=== PATIENT | male | born 1985 | race American Indian/Alaskan Native ===

== ENCOUNTER 2019-01-13 02:38 | Emergency (ER) | payer OTHER ==
[2019-01-13 02:59] VITALS: BP 168/96
[2019-01-13] MEDS ORDERED: ULTRAM PO ONE (05:53)
[2019-01-13] MEDS ORDERED: BOOSTRIX IM ONE (05:53)
--- NOTE | 2019-01-13 05:53 | Emergency Department Report ---
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 ED Review of Systems ROS: Stated complaint: LEFT MIDDLE FINGER LACERATION Other details as noted in HPI Constitutional: denies: chills, fever Eyes: denies: eye pain, eye discharge, vision change ENT: denies: ear pain, throat pain Respiratory: denies: cough, shortness of breath, wheezing Cardiovascular: denies: chest pain, palpitations Endocrine: no symptoms reported Gastrointestinal: denies: abdominal pain, nausea, diarrhea Genitourinary: denies: urgency, dysuria Musculoskeletal: denies: back pain, joint swelling, arthralgia Skin: other (laceration left middle finger ). denies: rash, lesions Neurological: denies: headache, weakness, paresthesias Psychiatric: denies: anxiety, depression Hematological/Lymphatic: denies: easy bleeding, easy bruising ED Past Medical Hx - Past Medical History Previous Medical History?: Yes Hx Asthma: Yes - Surgical History Past Surgical History?: Yes Additional Surgical History: facial reconstructive sx, finger sx, wisdom teeth removed - Social History Smoking Status: Current Every Day Smoker Substance Use Type: None - Medications Home Medications: Home Medications Medication Instructions Recorded Confirmed Last Taken Type Cephalexin [Keflex] 500 mg PO TID 10 Days #30 capsule 01/13/19 Unknown Rx Tramadol HCl [Ultram] 50 mg PO Q6H #12 tablet 01/13/19 Unknown Rx Laceration Physical Exam - Exam General: Vital signs noted. No distress. Alert and acting appropriately. Wound Length (cm): 1 (finger tip ) Laceration Location: Upper Extremity Laceration Exam: Yes Normal Distal CMS, No Foreign Body, No Exposed Tendon, Vessel, or Nerve, No Tendon Injury ED Course Vital Signs 01/13/19 02:57 Temperature 98.8 F Pulse Rate 69 Respiratory 18 Rate Blood Pressure 168/96 O2 Sat by Pulse 100 Oximetry - Laceration /Wound Repair Left Distal Volar Finger Wound Location: upper extremity Wound Length (cm): 1 Wound's Depth, Shape: superficial, flap Wound Explored: clean Irrigated w/ Saline (ccs): 20 Betadine Prep?: Yes Anesthesia: 1% Lidocaine Volume Anesthetic (ccs): 0 Wound Debrided: minimal Wound Repaired With: Dermabond Sterile Dressing Applied?: Yes Progress: left middle finger laceration volar flap less than 1 cm mild bleeding , wound cleaned with betadine solution, irrigated wthi 20 cc sterile saline wound closed with dermabond , all bleeding controlled pt tolerated procedure with minimal distress, pt given wound care instructions pt verbalized agreement and understanding of discharge plan. ED Medical Decision Making - Medical Decision Making this is left middle finger laceration see procedure note all bleeding is controlled CMS intact, tetanus given, plan, pt will follow up with pcp in 2 days for wound check , return to ed if symptoms of infection, pt will be dc'd to home with rx for keflex and ultram, pt is currently a/o x 3 ambulatory with steady gait and nad . Critical care attestation.: If time is entered above; I have spent that time in minutes in the direct care of this critically ill patient, excluding procedure time. ED Disposition Clinical Impression: Laceration of finger Qualifiers: Encounter type: initial encounter Finger: little finger Damage to nail status: without damage Foreign body presence: without foreign body Laterality: left Qualified Code(s): S61.217A - Laceration without foreign body of left little finger without damage to nail, initial encounter Disposition: DC-01 TO HOME OR SELFCARE Is pt being admited?: No Does the pt Need Aspirin: No Condition: Stable Instructions: Laceration (ED), Skin Adhesive Care (ED) Prescriptions: Cephalexin [Keflex] 500 mg PO TID 10 Days #30 capsule Tramadol HCl [Ultram] 50 mg PO Q6H #12 tablet Referrals: EFFIE CASAS MD [Primary Care Provider] - 3-5 Days Forms: Work/School Release Form(ED) Time of Disposition: 06:12
== END 2019-01-13 06:11 | disposition home or self-care (01) ==
LOC: ED 02:38
DX: S61.213A Laceration without foreign body of left middle finger without damage to nail, initial encounter (principal); J45.909 Unspecified asthma, uncomplicated; F17.200 Nicotine dependence, unspecified, uncomplicated; W27.5XXA Contact with paper-cutter, initial encounter; Y93.89 Activity, other specified; Y92.89 Other specified places as the place of occurrence of the external cause; Y99.8 Other external cause status
CPT/HCPCS: 90471; 90715